=== PATIENT | male | born 1935 | race Caucasian/White ===

== ENCOUNTER → 2019-10-11 13:34 | Outpatient (REF) | payer OTHER, MEDICAID, SELFPAY | LOC: ANHLAB 13:34 | PROVIDERS: PCP Internal Medicine; Visit Provider Nurse Practitioner | DX: D04.39 Carcinoma in situ of skin of other parts of face (principal) | CPT/HCPCS: 88305 ==

== ENCOUNTER → 2019-10-29 07:53 | Outpatient (REF) | payer OTHER, MEDICAID, SELFPAY | LOC: ANHLAB 07:53 | PROVIDERS: PCP Internal Medicine; Visit Provider Nurse Practitioner | DX: C44.329 Squamous cell carcinoma of skin of other parts of face (principal) | CPT/HCPCS: 88305; 88331 ==